=== PATIENT | female | born 1960 | race Caucasian/White ===

== ENCOUNTER → 2022-06-11 | Outpatient (REF) | payer MEDICARE, OTHER ==
[2022-06-11 15:10] LABS: IMMUNOGLOBULIN G 1000 MG/DL (681-1648); IMMUNOGLOBULIN M 54.7 MG/DL (40-230)
[2022-06-11 16:38] LABS: HEPATITIS C VIRUS ABY INDEX < 0.0 INDEX (<0.8)
[2022-06-19 10:08] LABS: TISSUE TRANSGLUTAMINASE IgA <2 U/mL (0-3)
== END ==
LOC: M LAB REF 11:53
PROVIDERS: ATTEND Internal Medicine
DX: Z01.89 Encounter for other specified special examinations (principal); A49.9 Bacterial infection, unspecified; R10.13 Epigastric pain

== ENCOUNTER → 2022-10-24 | Outpatient (CLI) | payer MEDICARE ==
[~2022-10-24] MED LIST: E-Z-GAS II EFFERVESCENT PACKET (SODIUM BICARB./CITRIC ACID/SIMETHICONE) As Ordered ONE; E-Z-HD 98% w/w 340GM SUSP BTL As Ordered ONE; E-Z-PAQUE 96% w/w SUSP 176GM BTL As Ordered ONE
== END ==
LOC: M RAD 07:17
PROVIDERS: ATTEND Otolaryngology
DX: R13.10 Dysphagia, unspecified (principal)

== ENCOUNTER → 2022-11-05 | Outpatient (CLI) | payer MEDICARE ==
[2022-11-05 11:32] LABS: BLOOD UREA NITROGEN 14 MG/DL (9-23); CREATININE FOR GFR 0.78 MG/DL (0.55-1.30); GLOMERULAR FILTRATION RATE > 60.0 (>45)
== END ==
LOC: M LAB 09:36
PROVIDERS: ATTEND Otolaryngology
DX: R13.10 Dysphagia, unspecified (principal)

== ENCOUNTER → 2022-11-06 | Outpatient (CLI) | payer MEDICARE ==
[~2022-11-06] MED LIST changes: -E-Z-GAS II EFFERVESCENT PACKET (SODIUM BICARB./CITRIC ACID/SIMETHICONE) As Ordered ONE; -E-Z-HD 98% w/w 340GM SUSP BTL As Ordered ONE; -E-Z-PAQUE 96% w/w SUSP 176GM BTL As Ordered ONE; +ISOVUE-370 76% 100ML VIAL As Ordered ONE
== END ==
LOC: M RAD 08:46
PROVIDERS: ATTEND Otolaryngology
DX: K13.79 Other lesions of oral mucosa (principal); Z98.1 Arthrodesis status; I65.21 Occlusion and stenosis of right carotid artery
CPT/HCPCS: 70491; Q9967

== ENCOUNTER 2023-01-09 10:53 | Day surgery (SDC) | payer MEDICARE ==
[~2023-01-09] VITALS: Ht 154.9 cm; Wt 70.7 kg
[~2023-01-09 10:53] MED LIST changes: +ATOR80TA59 PO; +CARV12.5 PO; +EZET10TA21 PO; +FLUT1BLS8; +GABA-1171 PO; -ISOVUE-370 76% 100ML VIAL As Ordered ONE; +LISI30TA4 PO; +NS 1,000 ML IV ONE; +OMEP40CA5 PO; +PHEN15CA6 PO; +TIZA2TA PO; +[UNRECOGNIZED DRUG - CODE] PO
[2023-01-09] MEDS ORDERED: propofoL 200 MG/20 ML VIAL As Ordered ONE (11:00)
[2023-01-09] MEDS ORDERED: fentaNYL 100 MCG/2 ML INJECTION As Ordered ONE (11:00)
[2023-01-09 12:50] VITALS: BP 140/79; O2SAT 99
== END 2023-01-09 12:51 | disposition home or self-care (01) ==
LOC: M OPP 10:53
PROVIDERS: ATTEND Internal Medicine Gastroenterology
DX: R12 Heartburn (principal)
CPT/HCPCS: 43239; 88305; J3010

== ENCOUNTER → 2024-01-03 | Outpatient (REF) | payer MEDICARE ==
[~2024-01-03] MED LIST changes: -NS 1,000 ML IV ONE
[2024-01-03 18:42] LABS: C REACTIVE PROTEIN QUANTITATIV < 0.40 MG/DL (<1.0)
[2024-01-03 18:43] LABS: LIPASE 36 U/L (12-53)
== END ==
LOC: M LAB REF 17:07
PROVIDERS: ATTEND Internal Medicine
DX: R10.13 Epigastric pain (principal)

== ENCOUNTER → 2024-01-09 | Outpatient (CLI) | payer MEDICARE ==
[~2024-01-09] MED LIST changes: +GASTROGRAFIN SOLUTION 30ML As Ordered ONE
== END ==
LOC: M RAD 13:53
PROVIDERS: ATTEND Internal Medicine
DX: R10.13 Epigastric pain (principal); K57.30 Diverticulosis of large intestine without perforation or abscess without bleeding
CPT/HCPCS: 74176; Q9963

== ENCOUNTER → 2025-03-16 | Outpatient (REF) | payer MEDICARE ==
[~2025-03-16] MED LIST changes: -GASTROGRAFIN SOLUTION 30ML As Ordered ONE
[2025-03-16 14:00] LABS: IRON (FE) 104.0 UG/DL (50-170); PERCENT SATURATION 35.0 % (13.2-45.0)
== END ==
LOC: M LAB REF 12:21
PROVIDERS: ATTEND Internal Medicine
DX: R10.13 Epigastric pain (principal); K21.9 Gastro-esophageal reflux disease without esophagitis